=== PATIENT | female | born 1935 | race Caucasian/White ===

== ENCOUNTER 2020-08-24 20:51 | Inpatient (IN) | payer MEDICARE ==
[~2020-08-24] VITALS: Ht 160 cm; Wt 85.5 kg
[2020-08-25] VITALS (19 sets, daily range): BP systolic 99–153; BP diastolic 52–87
[2020-08-25] MEDS ORDERED: DiphenhydrAMINE HCL 50 MG/ML VIAL IV PRN (03:15)
[2020-08-25] MEDS ORDERED: ONDANSETRON 4MG INJ IV PRN (03:15)
[2020-08-25] MEDS ORDERED: NITROGLYCERIN 0.4 MG SL TAB SL PRN (03:15)
[2020-08-25] MEDS ORDERED: ALBUTEROL 0.083% 2.5 MG/3 ML INH IH PRN (03:15)
[2020-08-25] MEDS ORDERED: LACTULOSE 20 GM/30 ML UDCUP PO PRN (03:15)
[2020-08-25] MEDS ORDERED: DIPHENHYDRAMINE HCL 25 MG CAPSULE PO PRN (03:15)
[2020-08-25] MEDS ORDERED: GUAIFENESIN-DM 200/20 MG 10 ML PO PRN (03:15)
[2020-08-25] MEDS ORDERED: MAG/ALUM/SIMETH 30 ML UDCUP PO PRN (03:15)
[2020-08-25] MEDS ORDERED: ACETAMINOPHEN 325 MG TAB PO PRN (03:15)
[2020-08-25] MEDS ORDERED: HYDR-4377 PO (03:31)
[2020-08-25] MEDS ORDERED: CITA20TA17 PO (03:31)
[2020-08-25] MEDS ORDERED: RAMI5CAP66 PO (03:31)
[2020-08-25] MEDS ORDERED: AMOX500C2 PO (03:31)
[2020-08-25] MEDS ORDERED: PREG150C46 PO (03:31)
[2020-08-25] MEDS ORDERED: TRAM50TA4 PO (03:31)
[2020-08-25] MEDS ORDERED: RABE20TA30 PO (03:31)
[2020-08-25] MEDS ORDERED: METO-391 PO (03:31)
[2020-08-25] MEDS ORDERED: CELE-84 PO (03:31)
[2020-08-25] MEDS ORDERED: 0.9%NACL 1000ML 1,000 ML IV SCH (04:00)
[2020-08-25] MEDS ORDERED: HEPARIN 25,000 UNITS/250ML D5W 250 ML IV SCH (04:00)
[2020-08-25 05:27] LABS: INR 1.07 (0.85-1.15); PROTHROMBIN TIME 11.6 SEC (9.6-11.6)
[2020-08-25 05:29] LABS: PARTIAL THROMBOPLASTIN TIME 43.6 SEC (26.3-35.5)
[2020-08-25] MEDS ORDERED: LIDOCAINE HCL 400MG/20ML VIAL ONE (07:32)
[2020-08-25] MEDS ORDERED: MIDAZOLAM HCL 1 MG/ML 2ML VIAL ONE (07:32)
[2020-08-25] MEDS ORDERED: IOHEXOL 350 MG/ML 100ML INFUS..BTL IV ONE ×2 (07:32→08:36)
[2020-08-25] MEDS ORDERED: HEPARIN 10,000 UNIT/10ML (1,000 UNIT/ML) VIAL ONE (07:32)
[2020-08-25] MEDS ORDERED: FENTANYL CITRATE PF 50 MCG/1 ML 2ML VIAL ONE (07:32)
[2020-08-25] MEDS ORDERED: NITROGLYCERIN 2 MG VIAL IV ONE (07:32)
[2020-08-25 08:12] LABS: HEMATOCRIT 36.4 % (36-48); MEAN CORPUSCULAR HEMOGLOBIN 29.6 pg (27.0-33.0); MEAN CORPUSCULAR HGB CONC 31.9 g/dL (32.0-36.0); MEAN CORPUSCULAR VOLUME 92.9 fL (79-99); RED BLOOD CELL COUNT(AUTO) 3.92 MIL/uL (4.00-5.50); RED CELL DISTRIBUTION WIDTH 14.5 % (11.0-15.5); WHITE BLOOD COUNT (AUTO) 5.7 K/uL (4.8-10.8)
[2020-08-25] MEDS ORDERED: IOHEXOL-350 50ML VIAL IV ONE (08:34)
[2020-08-25] MEDS ORDERED: NITROGLYCERIN 50MG/D5W 250ML 1 BOT ONE (08:37)
[2020-08-25] MEDS ORDERED: MORPHINE 4 MG SYG ONE ×2 (08:38→10:02)
[2020-08-25] MEDS ORDERED: NICARDIPINE 25MG INJ IV ONE (08:50)
[2020-08-25] MEDS ORDERED: CLOPIDOGREL 300MG TAB ONE (08:50)
[2020-08-25] MEDS: FAMOTIDINE 20MG VIAL IV SCH (09:00)
[2020-08-25] MEDS ORDERED: METOPROLOL TARTRATE 25 MG TAB PO SCH (09:00)
[2020-08-25] MEDS ORDERED: IOHEXOL-350 75 ML VIAL IV ONE (09:03)
[2020-08-25 09:04] LABS: ALBUMIN 3.5 g/dL (3.5-5.0); BILIRUBIN,TOTAL 0.3 mg/dL (0.2-1.0); CREATININE 0.8 mg/dL (0.5-1.5); POTASSIUM 3.7 mmol/L (3.5-5.1); TOTAL PROTEIN, SERUM 7.1 g/dL (6.0-8.3)
[2020-08-25] MEDS ORDERED: CEFAZOLIN SODIUM 1 GM VIAL ONE (10:01)
[2020-08-25] MEDS ORDERED: PROTAMINE SULFATE 10 MG/ML 25ML VIAL IV ONE (10:10)
[2020-08-25] MEDS ORDERED: KCL 20 MEQ ERTAB PO PRN (10:30)
[2020-08-25] MEDS ORDERED: ATORVASTATIN 10 MG TABLET PO SCH (10:30)
[2020-08-25] MEDS ORDERED: NITROGLYCERIN 50MG/D5W 250ML 250 BOT IV SCH (10:30)
[2020-08-25] MEDS ORDERED: METOPROLOL TARTRATE 25 MG TAB ONE (11:31)
[2020-08-25] MEDS: 0.9%NACL 1000ML 1,000 ML IV SCH (11:35)
[2020-08-25] MEDS: ACETAMINOPHEN 325 MG TAB PO PRN (23:59)
[2020-08-26] VITALS (18 sets, daily range): BP systolic 93–160; BP diastolic 58–96
[2020-08-26] MEDS: METOPROLOL TARTRATE 25 MG TAB PO SCH ×3 (00:01→21:26)
[2020-08-26] MEDS: 0.9%NACL 1000ML 1,000 ML IV SCH (03:28)
[2020-08-26 03:33] LABS: BASOPHILS % (AUTO) 0.3 % (0.0-5.0); EOSINOPHILS % (AUTO) 0.3 % (0.0-8.0); HEMATOCRIT 31.7 % (36-48); LYMPHOCYTES % (AUTO) 9.7 % (21.0-51.0); MEAN CORPUSCULAR HEMOGLOBIN 29.5 pg (27.0-33.0); MEAN CORPUSCULAR HGB CONC 31.9 g/dL (32.0-36.0); MEAN CORPUSCULAR VOLUME 92.7 fL (79-99); MONOCYTES % (AUTO) 28.8 % (3.0-13.0); NEUTROPHILS % (AUTO) 59.9 % (40.0-77.0); PLATELET COUNT (AUTO) 102 K/uL (130-400); RED BLOOD CELL COUNT(AUTO) 3.42 MIL/uL (4.00-5.50); RED CELL DISTRIBUTION WIDTH 14.3 % (11.0-15.5); WHITE BLOOD COUNT (AUTO) 6.9 K/uL (4.8-10.8)
[2020-08-26 03:48] LABS: ALBUMIN 3.2 g/dL (3.5-5.0); BILIRUBIN,TOTAL 0.4 mg/dL (0.2-1.0); CREATININE 0.7 mg/dL (0.5-1.5); POTASSIUM 3.8 mmol/L (3.5-5.1); TOTAL PROTEIN, SERUM 6.3 g/dL (6.0-8.3)
[2020-08-26] MEDS ORDERED: TRAMADOL HCL 50 MG TABLET PO PRN (09:15)
[2020-08-26] MEDS: ASPIRIN 81MG CHEW TAB PO SCH (09:31)
[2020-08-26] MEDS: CLOPIDOGREL 75MG TAB PO SCH (09:32)
[2020-08-26] MEDS: AMLODIPINE-BENAZEPRIL 5-10 MG PO SCH (09:33)
[2020-08-26] MEDS: PANTOPRAZOLE 40 MG TAB DR PO SCH (09:35)
[2020-08-26] MEDS: FAMOTIDINE 20MG VIAL IV SCH ×3 (09:35→21:26)
[2020-08-26] MEDS: ATORVASTATIN 40 MG TABLET PO SCH (09:38)
[2020-08-26] MEDS ORDERED: NON-FORMULARY MEDICATION 1 EACH (Rabeprazole Sodium 20 MG) PO SCH (21:00)
[2020-08-26] MEDS: ACETAMINOPHEN 325 MG TAB PO PRN (21:28)
[2020-08-26] MEDS ORDERED: AMOXICILLIN 500 MG CAPSULE PO ONE (22:10)
[2020-08-26] MEDS: AMOXICILLIN 500 MG CAPSULE PO SCH (22:19)
[2020-08-27 04:32] VITALS: BP 150/68
[2020-08-27 04:47] LABS: BASOPHILS % (AUTO) 0.4 % (0.0-5.0); EOSINOPHILS % (AUTO) 0.5 % (0.0-8.0); HEMATOCRIT 31.8 % (36-48); LYMPHOCYTES % (AUTO) 7.1 % (21.0-51.0); MEAN CORPUSCULAR HEMOGLOBIN 30.3 pg (27.0-33.0); MEAN CORPUSCULAR VOLUME 91.6 fL (79-99); MONOCYTES % (AUTO) 29.3 % (3.0-13.0); NEUTROPHILS % (AUTO) 61.9 % (40.0-77.0); PLATELET COUNT (AUTO) 102 K/uL (130-400); RED BLOOD CELL COUNT(AUTO) 3.47 MIL/uL (4.00-5.50); RED CELL DISTRIBUTION WIDTH 14.1 % (11.0-15.5); WHITE BLOOD COUNT (AUTO) 8.4 K/uL (4.8-10.8)
[2020-08-27 05:04] LABS: ALBUMIN 3.4 g/dL (3.5-5.0); BILIRUBIN,TOTAL 0.5 mg/dL (0.2-1.0); CREATININE 0.7 mg/dL (0.5-1.5); POTASSIUM 3.3 mmol/L (3.5-5.1); TOTAL PROTEIN, SERUM 6.7 g/dL (6.0-8.3)
[2020-08-27] MEDS ORDERED: CITALOPRAM 20 MG TABLET PO SCH (09:00)
[2020-08-27] MEDS: FAMOTIDINE 20MG VIAL IV SCH (09:00)
[2020-08-27] MEDS: ATORVASTATIN 40 MG TABLET PO SCH (09:12)
[2020-08-27] MEDS ORDERED: ATOR40TA69 PO (09:12)
[2020-08-27] MEDS: AMLODIPINE-BENAZEPRIL 5-10 MG PO SCH (09:12)
[2020-08-27] MEDS ORDERED: ASPI-1005 PO (09:12)
[2020-08-27] MEDS: CLOPIDOGREL 75MG TAB PO SCH (09:12)
[2020-08-27] MEDS ORDERED: CLOP75TA14 PO (09:12)
[2020-08-27] MEDS: METOPROLOL TARTRATE 25 MG TAB PO SCH (09:12)
[2020-08-27] MEDS ORDERED: METO25 PO (09:12)
[2020-08-27] MEDS: ASPIRIN 81MG CHEW TAB PO SCH (09:12)
[2020-08-27] MEDS: PANTOPRAZOLE 40 MG TAB DR PO SCH (09:13)
[2020-08-27] MEDS: AMOXICILLIN 500 MG CAPSULE PO SCH (09:13)
[2020-08-27] MEDS ORDERED: AMLO1CAP88 PO (09:17)
[2020-08-27 09:46] VITALS: BP 125/72
[2020-08-27] MEDS ORDERED: KCL 20 MEQ ERTAB PO SCH ×2 (10:15→11:15)
== END 2020-08-27 11:42 | disposition home or self-care (01) | DRG 246 ==
LOC: 4DH 08-25 02:17 → 2DH 08-25 11:49 → 4DH 08-26 13:30
PROVIDERS: ADMIT Family Medicine; ATTEND Family Medicine
PROC: 027034Z Dilation of Coronary Artery, One Artery with Drug-eluting Intraluminal Device, Percutaneous Approach (ICD-10-PCS; principal; 2020-08-25)
PROC: 4A023N7 Measurement of Cardiac Sampling and Pressure, Left Heart, Percutaneous Approach (ICD-10-PCS; 2020-08-25)
PROC: B2111ZZ Fluoroscopy of Multiple Coronary Arteries using Low Osmolar Contrast (ICD-10-PCS; 2020-08-25)
PROC: B2181ZZ Fluoroscopy of Left Internal Mammary Bypass Graft using Low Osmolar Contrast (ICD-10-PCS; 2020-08-25)
PROC: B2171ZZ Fluoroscopy of Right Internal Mammary Bypass Graft using Low Osmolar Contrast (ICD-10-PCS; 2020-08-25)
PROC: B41F1ZZ Fluoroscopy of Right Lower Extremity Arteries using Low Osmolar Contrast (ICD-10-PCS; 2020-08-25)
DX: T82.218A Other mechanical complication of coronary artery bypass graft, initial encounter (principal); I21.4 Non-ST elevation (NSTEMI) myocardial infarction; I25.10 Atherosclerotic heart disease of native coronary artery without angina pectoris; I10 Essential (primary) hypertension; M19.90 Unspecified osteoarthritis, unspecified site; E66.9 Obesity, unspecified; M17.12 Unilateral primary osteoarthritis, left knee; Z96.652 Presence of left artificial knee joint; E78.5 Hyperlipidemia, unspecified; E87.6 Hypokalemia; Z68.33 Body mass index [BMI] 33.0-33.9, adult; I25.2 Old myocardial infarction; Z95.5 Presence of coronary angioplasty implant and graft; Y71.8 Miscellaneous cardiovascular devices associated with adverse incidents, not elsewhere classified; Y92.89 Other specified places as the place of occurrence of the external cause
CPT/HCPCS: 36415; 80053; 80061; 83735; 85025; 85027; 85347; 85610; 85730; 93005; 93306; 93455; 99156; 99157; C1760; C1769; C1884; C1887; C1894; C9604; G0378; J0690; J1644; J2250; J2270; J2720; J3010; J3490; J7030; Q9967